=== PATIENT | male | born 1965 | race Caucasian/White ===

== ENCOUNTER 2016-11-15 05:26 | Emergency (ER) | payer OTHER ==
--- NOTE | ~2016-11-15 | CR21 ---
[facility] A Service of [facility] & [facility] / [facility] RADIOLOGY TEXT RESULTS PATIENT: JAKUB VIIERA LOCATION: [facility] : 61 UNIT #: [id number] AGE: [address]: Cayden Rowland MD SEX: M ORDER DR: [id number] [facility] [address] [place], [place] [address] [id number] E MR#: [id number] Acc #: [id number] NAME: JAKUB VIEIRA : 1965 SEX: M STUDY DATE/TIME: 11/15/2016 05:09 UNIT: [facility] ROOM: STUDY DESCRIPTION: CR Ankle Min 3 Views Rt Attending Physician: Cayden Rowland M.D. Ordering Physician: Cayden Rowland M.D. Primary Care Physician: Primary Care Physician No MEDICAL IMAGING REPORT This report is preliminary unless electronic signature is present EXAM Right ankle, 11/15 at 0519 hours INDICATIONS Ankle pain on the medial side. Pain with ambulation. Patient had twisting injury 3 days ago. FINDINGS AP, lateral, and oblique projections of the ankle show satisfactory integrity of the joint mortise with a smooth articular surface. There is no identifiable fracture, dislocation, or radiopaque foreign body. IMPRESSION Normal right ankle. Dictated by... Fritz Lindsey Jr., M.D. THIS IS AN ELECTRONICALLY VERIFIED REPORT Fritz Lindsey Jr., M.D. at 11/15/2016 9:34 PM KRISTA/dain TD: 11/15/2016 17:37 JOB #: [id number] MEDICAL IMAGING REPORT COPY
[~2016-11-15 05:26] MED LIST: KEFLEX500 M1 PO; LEVAQUIN PO; LORTAB 5/500 TA1 TA1 PO; NO MEDICATIONS; PAXIL10 MG PO; PREDNISONE10 MG/DOSE PO; PROAIR HFA8.5 GM INH; ROXICODONE5 MG PO
== END 2016-11-15 05:45 | disposition home or self-care (01) ==
LOC: CED 05:26
DX: S93.401A Sprain of unspecified ligament of right ankle, initial encounter (principal); L03.115 Cellulitis of right lower limb; I10 Essential (primary) hypertension; F17.200 Nicotine dependence, unspecified, uncomplicated; X50.1XXA Overexertion from prolonged static or awkward postures, initial encounter; Y92.009 Unspecified place in unspecified non-institutional (private) residence as the place of occurrence of the external cause
CPT/HCPCS: 73610; 99283